=== PATIENT | male | born 1980 | race Caucasian/White ===

== ENCOUNTER 2019-03-11 05:50 | Emergency (ER) | payer MEDICAID ==
[~2019-03-11] VITALS: Ht 182.9 cm; Wt 72.6 kg
--- NOTE | 2019-03-11 06:00 | NUR ---
Patient states he took 2 aaron Aspirins unknown dose 4hrs [employer]
--- NOTE | 2019-03-11 06:00 | NUR ---
Patient ambulating with steady gait. A&O x4. c/o SOB and palpitation x7 days. Breathing even and unlabored. Denies any cough. Speech is clear and able to make needs known / follow commands. patient states that chest discomfort is about 4/10 on the pain scale. patient states he came back from [place] x5 days ago. Patient states he was far from [facility]. Denies any / GI distress. Denies any fever, chills, body aches since returning from [place].
--- NOTE | 2019-03-11 06:03 | NUR ---
Dr. Wyatt at bedside for MSE
[2019-03-11] MEDS ORDERED: ASPIRIN 325 MG TABLET PO ONE (06:15)
[2019-03-11 06:24] LABS: BASOPHILS % (AUTO) 0.7 % (0.0-2.0); EOSINOPHILS # (AUTO) 0.2 K/uL (0.0-0.7); EOSINOPHILS % (AUTO) 3.3 % (0.0-7.0); HEMATOCRIT 46.2 % (36.7-47.1); HEMOGLOBIN 15.4 g/dL (12.5-16.3); LYMPHOCYTES # (AUTO) 2.1 K/uL (20.0-40.0); LYMPHOCYTES % (AUTO) 30.4 % (20.5-51.5); MEAN CORPUSCULAR HEMOGLOBIN 29.2 uug (23.8-33.4); MEAN CORPUSCULAR HGB CONC 33 g/dL (32.5-36.3); MEAN CORPUSCULAR VOLUME 87.5 fL (73.0-96.2); MONOCYTES # (AUTO) 0.6 K/uL (2.0-10.0); MONOCYTES % (AUTO) 9.3 % (0.0-11.0); NEUTROPHILS # (AUTO) 3.9 K/uL (1.8-8.9); NEUTROPHILS % (AUTO) 56.3 % (38.5-71.5); PLATELET COUNT (AUTO) 225 K/uL (152-348); RED BLOOD CELL COUNT(AUTO) 5.28 MIL/uL (4.06-5.63); WHITE BLOOD COUNT (AUTO) 6.9 K/uL (3.6-10.2)
[2019-03-11 06:33] LABS: POTASSIUM 4.3 mmol/L (3.5-5.1)
[2019-03-11 06:39] LABS: BILIRUBIN,DIRECT 0.1 mg/dL (0.0-0.2); BILIRUBIN,TOTAL 0.2 mg/dL (0.2-1.0); TOTAL PROTEIN, SERUM 7.2 g/dL (6.4-8.2)
--- NOTE | 2019-03-11 07:10 | NUR ---
Report received from second shift supervisor. Pt resting in [facility] in room 3 with NAD noted at this time.
--- NOTE | 2019-03-11 08:00 | NUR ---
Dr. Murphy at bedside for re-eval.
[2019-03-11] MEDS ORDERED: KETOROLAC TROMETHAMINE 30 MG INJ ONE (08:13)
[2019-03-11] MEDS ORDERED: KETOROLAC TROMETHAMINE 30 MG INJ IVP ONE (08:15)
--- NOTE | 2019-03-11 08:17 | NUR ---
Pt to radiology via [facility] for 2 view CXR, pt is wearing a face mask for precaution.
--- NOTE | 2019-03-11 08:33 | NUR ---
Pt back from XRAY, NAD noted.
--- NOTE | 2019-03-11 09:00 | NUR ---
Infection control contacted for pt eval due to recent travel to [place].
--- NOTE | 2019-03-11 09:30 | NUR ---
Infection control and employee health nurse eval the case and spoke with the ER physician and it is okay to d/c pt home.
--- NOTE | 2019-03-11 09:40 | NUR ---
IV removed. Catheter intact and site benign. Pressure and 4x4 gauze applied to site. No bleeding noted.
--- NOTE | 2019-03-11 09:45 | NUR ---
Patient discharged to home in stable conditon. Written and verbal after care instructions given. Patient verbalizes understanding of instructions. Pt was given extensive ACI for follow up. No cough/fever/resp distress upon d/c. Pt stated he traveled to [facility] in the [facility] and came back 5 days ago. Pt was d/c home as per orders.
[2019-03-11 09:52] VITALS: BP 134/87
== END 2019-03-11 09:53 | disposition home or self-care (01) ==
LOC: ER 05:55
DX: R07.89 Other chest pain (principal); F41.9 Anxiety disorder, unspecified; R00.2 Palpitations
CPT/HCPCS: 36415; 71045; 71046; 80048; 80076; 84484; 85025; 85379; 85730; 93005; 96374; 99284; J1885; 70030-TC; A4663